=== PATIENT | female | born 1950 | race Hispanic/Latino ===

== ENCOUNTER 2019-02-08 13:46 | Emergency (ER) | payer OTHER ==
--- NOTE | 2019-02-08 14:40 | RAD REPORT ---
EXAM DESCRIPTION: RAD - Humerus Right - 02/08/2019 2:29 pm CLINICAL HISTORY: Right arm pain, trauma, history of metastatic breast carcinoma COMPARISON: None. FINDINGS: Proximal right humerus fracture is detailed as part of the right shoulder report. Mid and distal shaft shows no acute bone process related to trauma. Faint lucent areas in the midshaft are po tentially metastatic lesions given the history. No elbow joint abnormality. No foreign body or other soft tissue abnormality. IMPRESSION: Right upper extremity from midshaft to elbow shows no acute traumatic injury. Proximal h umerus fracture findings detailed in shoulder report. Two faint lucent areas are present midshaft right humerus. These are potentially metastatic sites giv en the history of metastatic breast carcinoma.
--- NOTE | 2019-02-08 14:44 | RAD REPORT ---
EXAM DESCRIPTION: Shoulder Right 2 View - 02/08/2019 2:29 pm CLINICAL HISTORY: Trauma, shoulder pain, history of metastatic breast carcinoma COMPARISON: None. TECHNIQUE: Internal and external rotation views of the right shoulder were obtained. FINDINGS: Fracture is present involving lateral shaft of the clavicle. The oblique fracture plane do es not have the sharp demarcated margins typically associated with an acute traumatic fracture. Bone in this region is mottled. Periosteal reaction changes are present. This is not an acute fracture and is questionably pathologic. No acute AC joint finding. There is no dislocation of the humeral head. An oblique fracture is present through the proximal right humerus at the metaphyseal diaphyseal junct ion. No grossly lytic or blastic bone change seen ; however, there are some subtle mottled changes al janey the fracture plane that could indicate weekend of bone from metastatic disease. No pneumothorax is present. Suspected lytic lesion in the lateral right fourth rib. IMPRESSION: Oblique fracture is present through the proximal shaft of the right humerus at the diaph yseal metaphyseal junction. There is approximately 1/2 shaft width overlap and 15 degrees angulation deformity. Mottled changes in the bone in this region raises suspicion for pathologic fracture. Old pathologic fracture of the right clavicle. Pathologic lytic change lateral right fourth rib.
--- NOTE | 2019-02-08 15:12 | ER ---
Nurse's Notes [facility] Name: Gisell Hong Age: 68 yrs Sex: Female : 1950 Arrival Date: 02/08/2019 Time: 13:57 Bed 26 Private MD: Diagnosis: Pathological fracture in neoplastic disease, right humerus Presentation: 02/08 13:58 Presenting complaint: EMS states: Pt was transferring from her wheelchair to the [facility] recliner when her knees buckled and started to fall. Her sister was tried to catch her and grabbed her R arm and pulled up causing the pain right now. Did not hurt any other part of the body. Pt is on stage 4 Breast Cancer that has metastasized to her bones. Pt's home health nurse gave her 20 mg of liquid morphine and 0.5 mg of Ativan. Transition of care: patient was received from another setting of care (home health care), [facility]. Onset of symptoms was February 08, 2019. Risk Assessment: Do you want to hurt yourself or someone else? Patient reports no desire to harm self or others. Initial Sepsis Screen: Does the patient meet any 2 criteria? No. Patient's initial sepsis screen is negative. Does the patient have a suspected source of infection? No. Patient's initial sepsis screen is negative. Care prior to arrival: None. 13:58 Method Of Arrival: EMS: [facility] ca1 13:58 Acuity: SHAVON 3 ca1 Historical: - Allergies: 14:05 Iodine; ca1 14:05 Tramadol HCl; ca1 14:05 Tylenol-Codeine #3; ca1 - Home Meds: 14:05 Morphine Oral [Active]; ca1 - PMHx: 14:05 breast cancer; Diverticulitis; ca1 - PSHx: 14:05 L Sided Masectomy; C section; Appendectomy; ca1 - Immunization history:: Adult Immunizations up to date. - Social history:: Smoking status: Patient/guardian denies using tobacco, never smoked. - Ebola Screening: : Patient negative for fever greater than or equal to 101.5 degrees Fahrenheit, and additional compatible Ebola Virus Disease symptoms Patient denies exposure to infectious person Patient denies travel to an Ebola-affected area in the 21 days before illness onset No symptoms or risks identified at this time. Screenin:08 Abuse screen: Denies threats or abuse. Denies injuries from another. Nutritional ca1 screening: No deficits noted. Tuberculosis screening: No symptoms or risk factors identified. Fall Risk Fall in past 12 months (25 points). Ambulatory Aid- Crutches/Cane/Walker (15 pts). Gait- Weak (10 pts.). Assessment: 14:08 General: Appears in no apparent distress. comfortable, Behavior is calm, cooperative, ca1 appropriate for age. Pain: Complains of pain in anterior aspect of right shoulder, right bicep and right elbow Pain currently is 8 out of 10 on a pain scale. Neuro: Level of Consciousness is awake, alert, obeys commands, Oriented to person, place, time, situation. Cardiovascular: Heart tones S1 S2 present Capillary refill < 3 seconds Patient's skin is warm and dry. Respiratory: Airway is patent Respiratory effort is even, unlabored, Respiratory pattern is regular, symmetrical, Breath sounds are clear bilaterally. GI: Abdomen is round non-distended, Bowel sounds present X 4 quads. Abd is soft and non tender X 4 quads. : No deficits noted. No signs and/or symptoms were reported regarding the genitourinary system. EENT: No deficits noted. No signs and/or symptoms were reported regarding the EENT system. Derm: Skin is intact, is healthy with good turgor, Skin is pink, warm \T\ dry. Musculoskeletal: Circulation, motion, and sensation intact. Capillary refill < 3 seconds. 15:16 Reassessment: Patient appears in no apparent distress at this time. Patient is alert, ca1 oriented x 3, equal unlabored respirations, skin warm/dry/pink. JOSÉ MANUEL Patricia at bedside discussing Xray results. Sling applied. 15:30 Reassessment: Patient appears in no apparent distress at this time. Patient is alert, ca1 oriented x 3, equal unlabored respirations, skin warm/dry/pink. Arranging ambulance transport to home. Pt requested to be transported back home by ambulance. CN and corporate secretary notified. 16:15 Reassessment: Awaiting transport. ca1 Vital Signs: 14:05 BP 145 / 78; Pulse 102; Resp 16 S; Temp 97.7(O); Pulse Ox 100% on R/A; Weight 63.5 kg ca1 (R); Height 5 ft. 2 in. (157.48 cm) (R); Pain 8/10; 15:16 BP 119 / 74; Pulse 97; Resp 16 S; Pulse Ox 99% on R/A; ca1 15:50 BP 117 / 60; Pulse 99; Resp 17 S; Pulse Ox 97% on R/A; ca1 14:05 Body Mass Index 25.61 (63.50 kg, 157.48 cm) ca1 ED Course: 13:57 Patient arrived in ED. jr8 13:57 Harshad Pope PA is PHCP. jr8 13:57 Javier Sandhu MD is Attending Physician. jr8 13:58 Radha Dailey, STACEY is Primary Nurse. ca1 14:03 Triage completed. ca1 14:05 Arm band placed on right wrist. Affected limb elevated. ca1 14:08 Patient has correct armband on for positive identification. Bed in low position. Call ca1 light in reach. Side rails up X2. Pulse ox on. NIBP on. Warm blanket given. 14:28 X-ray completed. Portable x-ray completed in exam room. Patient tolerated procedure mh1 well. 14:29 XRAY Shoulder RIGHT 2 view In Process Unspecified. EDMS 14:29 XRAY Humerus RIGHT In Process Unspecified. EDMS 15:16 No provider procedures requiring assistance completed. Patient did not have IV access ca1 during this emergency room visit. Sling applied to right arm. Administered Medications: No medications were administered Outcome: 15:10 Discharge ordered by . jr8 16:38 Discharged to home via ambulance, with family. ca1 16:38 Condition: stable 16:38 Discharge instructions given to patient, Instructed on discharge instructions, follow up and referral plans. Demonstrated understanding of instructions, follow-up care. 16:39 Patient left the ED. ca1 Signatures: Dispatcher [employer] EDMS MiguelCyndy mh1 Harshad Pope PA PA jr8 Radha Dailey, RN RN ca1 Shruti Gómez lt1 Corrections: (The following items were deleted from the chart) 15:37 15:37 Sling applied to right arm. lt1 lt1 16:15 15:50 Reassessment: Patient appears in no apparent distress at this time. Patient is ca1 alert, oriented x 3, equal unlabored respirations, skin warm/dry/pink. Arranging ambulance transport to home. Pt requested to be transported back home by ambulance. CN and corporate secretary notified ca1
--- NOTE | 2019-02-08 15:12 | EDPHYS ---
Physician Documentation [facility] Name: Gisell Hong Age: 68 yrs Sex: Female : 1950 Arrival Date: 02/08/2019 Time: 13:57 Bed 26 Private MD: ED Physician Javier Sandhu HPI: 02/08 14:00 This 68 yrs old Female presents to ER via Unassigned with complaints of Arm jr8 Pain. 14:00 The patient or guardian complains of decreased range of motion, pain. The complaints jr8 affect the anterior aspect of right shoulder and right bicep. Context: The problem was sustained at home, resulted from a fall. Onset: The symptoms/episode began/occurred acutely, today. Treatment prior to arrival includes: no previous treatment. Modifying factors: The symptoms are alleviated by nothing. the symptoms are aggravated by movement. Associated signs and symptoms: The patient has no apparent associated signs or symptoms. Severity of symptoms: At their worst the symptoms were mild, in the emergency department the symptoms are unchanged. The patient has not experienced similar symptoms in the past. The patient has not recently seen a physician. Patient stated while transferring out of wheelchair her legs buckled and was about to fall. Sister tried to catch her and was holding her up by right arm. Denies hitting head or neck but now has pain to right shoulder and mid upper arm. Historical: - Allergies: 14:05 Iodine; ca1 14:05 Tramadol HCl; ca1 14:05 Tylenol-Codeine #3; ca1 - Home Meds: 14:05 Morphine Oral [Active]; ca1 - PMHx: 14:05 breast cancer; Diverticulitis; ca1 - PSHx: 14:05 L Sided Masectomy; C section; Appendectomy; ca1 - Immunization history:: Adult Immunizations up to date. - Social history:: Smoking status: Patient/guardian denies using tobacco, never smoked. - Ebola Screening: : Patient negative for fever greater than or equal to 101.5 degrees Fahrenheit, and additional compatible Ebola Virus Disease symptoms Patient denies exposure to infectious person Patient denies travel to an Ebola-affected area in the 21 days before illness onset No symptoms or risks identified at this time. ROS: 14:00 Eyes: Negative for injury, pain, redness, and discharge, ENT: Negative for injury, jr8 pain, and discharge, Neck: Negative for injury, pain, and swelling, Cardiovascular: Negative for chest pain, palpitations, and edema, Respiratory: Negative for shortness of breath, cough, wheezing, and pleuritic chest pain, Abdomen/GI: Negative for abdominal pain, nausea, vomiting, diarrhea, and constipation, Back: Negative for injury and pain, Skin: Negative for injury, rash, and discoloration, Neuro: Negative for headache, weakness, numbness, tingling, and seizure. 14:00 MS/extremity: Positive for decreased range of motion, pain, tenderness, of the right bicep and anterior aspect of right shoulder. Exam: 14:00 Eyes: Pupils equal round and reactive to light, extra-ocular motions intact. Lids and jr8 lashes normal. Conjunctiva and sclera are non-icteric and not injected. Cornea within normal limits. Periorbital areas with no swelling, redness, or edema. ENT: Nares patent. No nasal discharge, no septal abnormalities noted. Tympanic membranes are normal and external auditory canals are clear. Oropharynx with no redness, swelling, or masses, exudates, or evidence of obstruction, uvula midline. Mucous membranes moist. Neck: Trachea midline, no thyromegaly or masses palpated, and no cervical lymphadenopathy. Supple, full range of motion without nuchal rigidity, or vertebral point tenderness. No Meningismus. Cardiovascular: Regular rate and rhythm with a normal S1 and S2. No gallops, murmurs, or rubs. Normal PMI, no JVD. No pulse deficits. Respiratory: Lungs have equal breath sounds bilaterally, clear to auscultation and percussion. No rales, rhonchi or wheezes noted. No increased work of breathing, no retractions or nasal flaring. Abdomen/GI: Soft, non-tender, with normal bowel sounds. No distension or tympany. No guarding or rebound. No evidence of tenderness throughout. Back: No spinal tenderness. No costovertebral tenderness. Full range of motion. Skin: Warm, dry with normal turgor. Normal color with no rashes, no lesions, and no evidence of cellulitis. Neuro: Awake and alert, GCS 15, oriented to person, place, time, and situation. Cranial nerves II-XII grossly intact. Motor strength 5/5 in all extremities. Sensory grossly intact. Cerebellar exam normal. Normal gait. 14:00 Musculoskeletal/extremity: Extremities: grossly normal except: noted in the right arm: Patient has tenderness without anterior fullness or step off to right shoulder. No external bruising or other signs of trauma noted to right arm. Patient also tender to right mid humerus. From elbow down unremarkable. Limited ROM present to arm and shoulder secondary to pain. No obvious deformity noted. Pulses 2+ radial and to res of patients extremities. Rest of extremities unremarkable . Vital Signs: 14:05 BP 145 / 78; Pulse 102; Resp 16 S; Temp 97.7(O); Pulse Ox 100% on R/A; Weight 63.5 kg ca1 (R); Height 5 ft. 2 in. (157.48 cm) (R); Pain 8/10; 15:16 BP 119 / 74; Pulse 97; Resp 16 S; Pulse Ox 99% on R/A; ca1 15:50 BP 117 / 60; Pulse 99; Resp 17 S; Pulse Ox 97% on R/A; ca1 14:05 Body Mass Index 25.61 (63.50 kg, 157.48 cm) ca1 MDM: 13:57 Patient medically screened. jr8 15:09 Data reviewed: vital signs, nurses notes, radiologic studies, plain films. Data jr8 interpreted: Pulse oximetry: on room air is 100 %. Interpretation: normal. Counseling: I had a detailed discussion with the patient and/or guardian regarding: the historical points, exam findings, and any diagnostic results supporting the discharge/admit diagnosis, radiology results, the need for outpatient follow up, a orthopedic surgeon, to return to the emergency department if symptoms worsen or persist or if there are any questions or concerns that arise at home. 02/08 13:57 Order name: XRAY Shoulder RIGHT 2 view; Complete Time: 14:47 jr8 02/08 13:57 Order name: XRAY Humerus RIGHT; Complete Time: 14:47 jr8 02/08 14:41 Order name: Sling; Complete Time: 15:16 jr8 Administered Medications: No medications were administered Disposition: 02/09 07:09 Co-signature as Attending Physician, Javier Sandhu MD I agree with the assessment and suni plan of care. Chart complete. Disposition: 02/08/19 15:10 Discharged to Home. Impression: Pathological fracture in neoplastic disease, right humerus. - Condition is Stable. - Discharge Instructions: Humerus Fracture Treated With Immobilization. - Medication Reconciliation Form, Thank You Letter, Antibiotic Education, Prescription Opioid Use form. - Follow up: Private Physician; When: 2 - 3 days; Reason: Recheck today's complaints, Continuance of care, Re-evaluation by your physician. - Problem is new. - Symptoms have improved. Signatures: Dispatcher [employer] EDMS Javier Sandhu MD MD cha Roszak, Josh, PA PA jr8 Radha Dailey RN RN ca1 Corrections: (The following items were deleted from the chart) 02/08 16:39 15:10 02/08/2019 15:10 Discharged to Home. Impression: Pathological fracture in ca1 neoplastic disease, right humerus. Condition is Stable. Forms are Medication Reconciliation Form, Thank You Letter, Antibiotic Education, Prescription Opioid Use. Follow up: Private Physician; When: 2 - 3 days; Reason: Recheck today's complaints, Continuance of care, Re-evaluation by your physician. Problem is new. Symptoms have improved. jr8
== END 2019-02-08 16:39 | disposition home or self-care (01) ==
LOC: ER 13:46
DX: M84.521A Pathological fracture in neoplastic disease, right humerus, initial encounter for fracture (principal); D49.3 Neoplasm of unspecified behavior of breast; Z90.12 Acquired absence of left breast and nipple; W19.XXXA Unspecified fall, initial encounter; Y93.9 Activity, unspecified; Y92.009 Unspecified place in unspecified non-institutional (private) residence as the place of occurrence of the external cause; Z88.5 Allergy status to narcotic agent; Z91.048 Other nonmedicinal substance allergy status
CPT/HCPCS: 99284